=== PATIENT | female | born 1990 | race African-American/Black ===

== ENCOUNTER 2022-10-30 11:18 | Emergency (ER) | payer MEDICAID ==
[~2022-10-30] VITALS: Ht 170.2 cm; Wt 86.4 kg
[~2022-10-30 11:18] MED LIST: IBUP-2029 MT; TAMS-11 MT
[2022-10-30 11:58] LABS: CHLORIDE 112 mEq/L (98-107)
[2022-10-30 12:01] LABS: BASOPHILS % 0.8 % (0.0-2.0); EOSINOPHILS % 2.6 % (0.0-5.0); HEMATOCRIT. 28.5 % (36.0-48.0); HEMOGLOBIN. 8.9 g/dL (12.0-16.0); LYMPHOCYTES % 23.1 % (20.0-50.0); MEAN CORPUSCULAR HEMOGLOBIN 23.9 pg (28.0-32.0); MEAN CORPUSCULAR VOLUME 76.5 fL (81.0-99.0); MEAN PLATELET VOLUME 6.2 fl (7.4-10.4); MONOCYTES % 6.4 % (2.0-8.0); NEUTROPHILS % 67.1 % (40.0-76.0); PLATELET 550 x1000/uL (130-400); RED BLOOD CELL COUNT 3.73 mill/uL (4.2-5.4); RED CELL DISTRIBUTION WIDTH 18.6 % (11.6-14.6)
[2022-10-30] MEDS ORDERED: KETOROLAC 30MG/ML VIAL IV STA (12:42)
[2022-10-30] MEDS ORDERED: ONDANSETRON HCL 4MG/2ML INJ IV STA (12:42)
[2022-10-30] MEDS ORDERED: SODIUM CHLORIDE 0.9% 1,000 ML IV ONE (12:45)
[2022-10-30 12:52] LABS: CLARITY URINE CLEAR (CLEAR); COLOR URINE YELLOW (YELLOW); KETONES URINE NEGATIVE (NEGATIVE); LEUKOCYTE ESTERASE URINE TRACE (NEGATIVE); NITRITE URINE NEGATIVE (NEGATIVE); OCCULT BLOOD URINE 3+ (NEGATIVE); PH URINE 5.5 (4.5-8.0); PROTEIN URINE TRACE (NEGATIVE); SPECIFIC GRAVITY URINE 1.028 (1.005-1.030); UROBILINOGEN URINE 0.2 E.U./dL (0.2-1.0)
[2022-10-30] MEDS ORDERED: IBUP-2030 MT (16:18)
[2022-10-30] MEDS ORDERED: AMOX1TAB16 MT (18:09)
[2022-10-30 18:53] VITALS: BP 124/75
== END 2022-10-30 18:57 | disposition home or self-care (01) ==
LOC: ER 11:18
DX: D64.9 Anemia, unspecified (principal); R10.32 Left lower quadrant pain; J45.909 Unspecified asthma, uncomplicated
CPT/HCPCS: 36415; 74176; 80053; 81003; 81025; 83690; 85025; 96361; 96374; 96375; 99285; J1885; J2405; J7030; Z7610

== ENCOUNTER 2025-06-03 14:22 | Emergency (ER) | payer SELFPAY ==
[~2025-06-03] VITALS: Ht 165.1 cm; Wt 82.0 kg
[~2025-06-03 14:22] MED LIST changes: +AMOX1TAB16 MT; +IBUP-1455 MT; -IBUP-2029 MT; +IBUP-2030 MT; -TAMS-11 MT; +TAMS-54 MT
[2025-06-03 14:29] VITALS: O2SAT 100
[2025-06-03 15:22] LABS: BASOPHILS % 0.5 % (0.0-2.0); EOSINOPHILS % 1.9 % (0.0-5.0); HEMATOCRIT. 29.4 % (36.0-48.0); HEMOGLOBIN. 9.2 g/dL (12.0-16.0); LYMPHOCYTES % 24.3 % (20.0-50.0); MEAN PLATELET VOLUME 6.6 fl (7.4-10.4); MONOCYTES % 5.1 % (2.0-8.0); NEUTROPHILS % 68.2 % (40.0-76.0); PLATELET 450 x1000/uL (130-400); RED BLOOD CELL COUNT 3.58 mill/uL (4.2-5.4); RED CELL DISTRIBUTION WIDTH 16.6 % (11.6-14.6)
[2025-06-03 15:28] LABS: CREATININE 0.7 mg/dL (0.6-1.0); UREA NITROGEN BLOOD 8 mg/dL (9-23)
[2025-06-03 15:31] LABS: CLARITY URINE CLEAR (CLEAR); COLOR URINE YELLOW (YELLOW); GLUCOSE URINE NEGATIVE (NEGATIVE); KETONES URINE NEGATIVE (NEGATIVE); LEUKOCYTE ESTERASE URINE NEGATIVE (NEGATIVE); NITRITE URINE NEGATIVE (NEGATIVE); OCCULT BLOOD URINE NEGATIVE (NEGATIVE); PH URINE 5.5 (4.5-8.0); PROTEIN URINE NEGATIVE (NEGATIVE); SPECIFIC GRAVITY URINE 1.013 (1.005-1.030); UROBILINOGEN URINE 0.2 E.U./dL (0.2-1.0)
[2025-06-03] MEDS: LIDOCAINE 5% PATCH TOP SCH (16:31)
[2025-06-03] MEDS: SODIUM CHLORIDE 0.9% 1,000 ML IV ONE (16:32)
[2025-06-03] MEDS: KETOROLAC 15MG/ML VIAL IV ONE (16:32)
[2025-06-03 17:46] VITALS: BP 122/73; PULSE 90; RESP 17; TEMP 36.9; O2SAT 100
== END 2025-06-03 18:20 | disposition home or self-care (01) ==
LOC: ER 14:22
DX: M54.50 Low back pain, unspecified (principal); J45.909 Unspecified asthma, uncomplicated
CPT/HCPCS: 99291; 96374; 76770; 96361; 80048; 81003; 81025; 85025; 36415; J1885; J7030